=== PATIENT | female | born 1985 | race Caucasian/White ===

== ENCOUNTER 2016-07-22 18:06 | Emergency (ER) | payer OTHER ==
[2016-07-22 18:20] VITALS: BP 107/56; PULSE 67; TEMP 97.9; BMI 27.8
--- NOTE | 2016-07-22 18:57 | PDOC ---
History of Present Illness - General Chief Complaint: Pain Stated Complaint: INJURY Time Seen by Provider: 07/22/16 18:26 History Source: Patient Exam Limitations: No Limitations - History of Present Illness Initial Comments: 07/22/16 18:50 31 yr female with 2 weeks pain to right wrist . Pt states she lifts weight and may have twisted it . no direct trauma. Occurred: reports: other (2 weeks) Severity: reports: mild Past History - Past Medical History Allergies/Adverse Reactions: Allergies Allergy/AdvReac Type Severity Reaction Status Date / Time No Known Allergies Allergy Verified 07/22/16 18:10 Home Medications: Ambulatory Orders Amox-Tr/K Cl [Augmentin 875Mg Tablet] 1 tab PO BID #20 tablet 08/26/12 No Home Medications 0 dose .ROUTE UTDICT 08/26/12 Other medical history: denies - Psycho/Social/Smoking Cessation Hx Anxiety: No Suicidal Ideation: No Smoking Status: No Smoking History: Never smoked Number of Cigarettes Smoked Daily: 0 Information on smoking cessation initiated: No Hx Alcohol Use: No Drug/Substance Use Hx: No Substance Use Type: None Review of Systems - Review of Systems Able to Perform ROS?: Yes Is the patient limited Sami proficient: No Constitutional: No: Symptoms Reported HEENTM: No: Symptoms Reported Respiratory: No: Symptoms reported Cardiac (ROS): No: Symptoms Reported ABD/GI: No: Symptoms Reported : No: Symptoms Reported Musculoskeletal: Yes: Symptoms Reported, See HPI *Physical Exam - Vital Signs Last Vital Signs Temp Pulse Resp BP Pulse Ox 97.9 F 67 18 107/56 98 07/22/16 18:08 07/22/16 18:08 07/22/16 18:08 07/22/16 18:08 07/22/16 18:08 - Physical Exam General Appearance: Yes: Nourished, Appropriately Dressed HEENT: positive: EOMI, MICKEY Neck: negative: Tender Respiratory/Chest: positive: Lungs Clear, Normal Breath Sounds Cardiovascular: positive: Regular Rhythm, Regular Rate Musculoskeletal: positive: Normal Inspection Extremity: positive: Normal Capillary Refill, Normal Inspection, Normal Range of Motion, Swelling (distal radius right ) Integumentary: positive: Normal Color, Dry, Warm Neurologic: positive: Fully Oriented, Alert, Normal Mood/Affect, Normal Response , Motor Strength 5/5 Procedures - Splinting Pre-Made Type: velcro (right wrist) ED Treatment Course - RADIOLOGY Radiology Studies Ordered: Category Date Time Status WRIST W/HAND-RIGHT* [RAD] Stat Radiology 07/22/16 18:24 Ordered Medical Decision Making - Medical Decision Making 07/22/16 18:52 cc: right wrist and hand pain swelling for 2 weeks noticed after lifting weights will get xray motrin for pain 07/22/16 18:54 07/22/16 18:57 *DC/Admit/Observation/Transfer Diagnosis at time of Disposition: Sprain of wrist Qualifiers: Encounter type: initial encounter Laterality: right Qualified Code(s): S63.501A - Unspecified sprain of right wrist, initial encounter - Discharge Dispostion Disposition: HOME Condition at time of disposition: Good - Referrals Referrals: Lonnie Yarbrough MD [Primary Care Provider] - Mg Obrien MD [Staff Physician] - - Patient Instructions Additional Instructions: follow with the orthopedist at the number listed below use the splint at all times except to bathe no lifting weights or other strenuous activity that uses your wrist until cleared by the orthopedist and pain resolves take motrin for pain as needed (over the counter ibuprofen, motrin or advil)
== END 2016-07-22 19:57 | disposition home or self-care (01) ==
LOC: JER 18:06 → JERFT 18:06
PROC: 2W3CX1Z Immobilization of Right Lower Arm using Splint (ICD-10-PCS; principal; 2016-07-22)
DX: S63.501A Unspecified sprain of right wrist, initial encounter (principal); X50.0XXA Overexertion from strenuous movement or load, initial encounter; X50.3XXA Overexertion from repetitive movements, initial encounter; Y93.B3 Activity, free weights; Y92.89 Other specified places as the place of occurrence of the external cause; Y99.8 Other external cause status
CPT/HCPCS: 73110-TC-RT; 73130-TC-RT; 99281-25

== ENCOUNTER 2016-10-19 05:56 | Emergency (ER) | payer OTHER ==
--- NOTE | 2016-10-19 06:01 | PDOC ---
History of Present Illness - General Stated Complaint: EYE IRRITATION Time Seen by Provider: 10/19/16 06:00 Past History - Past Medical History Allergies/Adverse Reactions: Allergies Allergy/AdvReac Type Severity Reaction Status Date / Time No Known Allergies Allergy Verified 07/22/16 18:10 Home Medications: Ambulatory Orders Amox-Tr/K Cl [Augmentin 875Mg Tablet] 1 tab PO BID #20 tablet 08/26/12 No Home Medications 0 dose .ROUTE UTDICT 08/26/12 - Psycho/Social/Smoking Cessation Hx Anxiety: No Suicidal Ideation: No Smoking Status: No Smoking History: Never smoked Number of Cigarettes Smoked Daily: 0 Hx Alcohol Use: No Drug/Substance Use Hx: No Substance Use Type: None
[2016-10-19] MEDS ORDERED: TETRACAINE 0.5% HCL 0.6ML DROPPER.BOTTLE OU ONE (06:02)
[2016-10-19] MEDS ORDERED: FLUORESCEIN NA 1 EA STRIP ONE (06:03)
[2016-10-19] MEDS ORDERED: TETRACAINE 0.5% OPHTH SOLN 2 ML BOTTLE ONE (06:03)
[2016-10-19] MEDS ORDERED: diphenhydrAMINE HCL 25 MG CAPSULE (FP) PO ONE (06:10)
[2016-10-19] MEDS ORDERED: ERYTHROMYCIN 0.5% OPHTHALMIC OINTMENT 3.5 GM TUBE ONE (06:10)
[2016-10-19] MEDS ORDERED: ERYTHROMYCIN 0.5% OPHTHALMIC OINTMENT 3.5 GM TUBE OU ONE (06:11)
[2016-10-19] MEDS ORDERED: diphenhydrAMINE HCL 50 MG CAPSULE PO ONE (06:12)
[2016-10-19 06:18] VITALS: BP 136/74; PULSE 86; TEMP 97.6; BMI 25.7
--- NOTE | 2016-10-19 06:33 | PDOC ---
History of Present Illness - General History Source: Patient Exam Limitations: No Limitations - History of Present Illness Initial Comments: 10/19/16 06:35 The patient is a 31-year-old female with no significant past medical history, and presents to the emergency department with bilateral eye pain and irritation that started early this morning prior to arrival. She reports she woke up and felt an itch in her bilateral eyes, and scratched her eyes mildly. She washed the eyes with cold water with no significant relief. She states she felt her eyes become progressively tight, painful, and red. She also reports of itchiness down her face. She denies rubbing her eyes excessively. She denies any pets or allergies. She is UTD with her tetanus. The patient denies chest pain, shortness of breath, headache and dizziness. The patient denies fever, chills, nausea, vomit, diarrhea and constipation. The patient denies dysuria, frequency, urgency and hematuria. Allergies: NKDA Past Surgical History: None reported Social History: No toxic habits reported <Marisol Friedman - Last Filed: 10/19/16 06:33> <Brody Ashton - Last Filed: 10/19/16 07:00> - General Chief Complaint: Eye Problem Stated Complaint: EYE IRRITATION Time Seen by Provider: 10/19/16 06:00 Past History <Marisol Friedman - Last Filed: 10/19/16 06:33> - Immunization History Immunization Up to Date: Yes - Psycho/Social/Smoking Cessation Hx Anxiety: No Suicidal Ideation: No Smoking Status: No Smoking History: Never smoked Have you smoked in the past 12 months: No Number of Cigarettes Smoked Daily: 0 Information on smoking cessation initiated: No Hx Alcohol Use: No Drug/Substance Use Hx: No Substance Use Type: None <Brody Ashton - Last Filed: 10/19/16 07:00> - Past Medical History Allergies/Adverse Reactions: Allergies Allergy/AdvReac Type Severity Reaction Status Date / Time No Known Allergies Allergy Verified 10/19/16 06:05 Home Medications: Ambulatory Orders No Home Medications 0 dose .ROUTE UTDICT 08/26/12 Erythromycin 0.5% Eye Ointment [Erythromycin 0.5% Eye Ointment -] 1 applic OU DAILY #1 tube 10/19/16 Review of Systems - Review of Systems Able to Perform ROS?: Yes Comments:: 10/19/16 06:35 CONSTITUTIONAL: Absent: fever, chills, diaphoresis, generalized weakness, malaise, loss of appetite HEENT: Present: (+) eye pain, (+) eye redness, (+) eye itching Absent: rhinorrhea, nasal congestion, throat pain, throat swelling, difficulty swallowing, mouth swelling, ear pain, visual changes CARDIOVASCULAR: Absent: chest pain, syncope, palpitations, irregular heart rate, lightheadedness , peripheral edema RESPIRATORY: Absent: cough, shortness of breath, dyspnea with exertion, orthopnea, wheezing, stridor, hemoptysis GASTROINTESTINAL: Absent: abdominal pain, abdominal distension, nausea, vomiting, diarrhea, constipation, melena, hematochezia GENITOURINARY: Absent: dysuria, frequency, urgency, hesitancy, hematuria, flank pain, genital pain MUSCULOSKELETAL: Absent: myalgia, arthralgia, joint swelling SKIN: Present: (+) face itching Absent: pallor HEMATOLOGIC/IMMUNOLOGIC: Absent: easy bleeding, easy bruising, lymphadenopathy, frequent infections ENDOCRINE: Absent: unexplained weight gain, unexplained weight loss, heat intolerance, cold intolerance NEUROLOGIC: Absent: headache, focal weakness or paresthesias, dizziness, unsteady gait, seizure, mental status changes, bladder or bowel incontinence PSYCHIATRIC: Absent: anxiety, depression, suicidal or homicidal ideation, hallucinations. <Marisol Friedman - Last Filed: 10/19/16 06:33> *Physical Exam - Vital Signs Last Vital Signs Temp Pulse Resp BP Pulse Ox 97.6 F 86 22 136/74 99 10/19/16 06:05 10/19/16 06:05 10/19/16 06:05 10/19/16 06:05 10/19/16 06:05 - Physical Exam Comments: 10/19/16 06:35 GENERAL: Well developed, well nourished. Awake and alert. No acute distress. HEENT: (+) Injected bilateral conjunctivitis with positive chemosis. No hyphema. No corneal abrasion with fluorescein strip. Everted upper and lower bilateral eyelids with no foreign bodies or eyelashes. Normocephalic, atraumatic. PERRLA, EOMI. No conjunctival pallor. Sclera are non-icteric. Moist mucous membranes. Oropharynx is clear. NECK: Supple. Full ROM. No JVD. Carotid pulses 2+ and symmetric, without bruits. No thyromegaly. No lymphadenopathy. CARDIOVASCULAR: Regular rate and rhythm. No murmurs, rubs, or gallops. Distal pulses are 2+ and symmetric. PULMONARY: No evidence of respiratory distress. Lungs clear to auscultation bilaterally. No wheezing, rales or rhonchi. ABDOMINAL: Soft. Non-tender. Non-distended. No rebound or guarding. No organomegaly. Normoactive bowel sounds. MUSCULOSKELETAL Normal range of motion at all joints. No bony deformities or tenderness. No CVA tenderness. EXTREMITIES: No cyanosis. No clubbing. No edema. No calf tenderness. SKIN: (+) Urticaria rash on both cheeks down to the chin. Warm and dry. Normal capillary refill. No jaundice. NEUROLOGICAL: Alert, awake, appropriate. Cranial nerves 2-12 intact. No deficits to light touch and temperature in face, upper extremities and lower extremities. No motor deficits in the in face, upper extremities and lower extremities. Normoreflexic in the upper and lower extremities. Normal speech. Toes are down- going bilaterally. PSYCHIATRIC: Cooperative. Appropriate mood and affect. <Marisol Friedman - Last Filed: 10/19/16 06:33> - Vital Signs Last Vital Signs Temp Pulse Resp BP Pulse Ox 97.6 F 86 22 136/74 99 10/19/16 06:05 10/19/16 06:05 10/19/16 06:05 10/19/16 06:05 10/19/16 06:05 <Brody Ashton - Last Filed: 10/19/16 07:00> ED Treatment Course - Medications Given in the ED: ED Medications Discontinued Medications Generic Name Dose Route Start Last Admin Trade Name Tulioq PRN Reason Stop Dose Admin Diphenhydramine HCl 50 mg 10/19/16 06:12 10/19/16 06:15 Benadryl - PO 10/19/16 06:13 50 mg ONCE ONE Administration Erythromycin 1 applic 10/19/16 06:11 10/19/16 06:15 Erythromycin 0.5% Eye Ointment OU 10/19/16 06:12 1 applic ONCE ONE Administration Tetracaine HCl 1 drop 10/19/16 06:02 10/19/16 06:07 Tetravisc 0.5% Eye Drops - OU 10/19/16 06:03 1 drop ONCE ONE Administration <Marisol Friedman - Last Filed: 10/19/16 06:33> - Medications Given in the ED: ED Medications Discontinued Medications Generic Name Dose Route Start Last Admin Trade Name Jaun PRN Reason Stop Dose Admin Diphenhydramine HCl 50 mg 10/19/16 06:12 10/19/16 06:15 Benadryl - PO 10/19/16 06:13 50 mg ONCE ONE Administration Erythromycin 1 applic 10/19/16 06:11 10/19/16 06:15 Erythromycin 0.5% Eye Ointment OU 10/19/16 06:12 1 applic ONCE ONE Administration Tetracaine HCl 1 drop 10/19/16 06:02 10/19/16 06:07 Tetravisc 0.5% Eye Drops - OU 10/19/16 06:03 1 drop ONCE ONE Administration <Brody Ashton - Last Filed: 10/19/16 07:00> *DC/Admit/Observation/Transfer - Attestations Scribe Attestion: 10/19/16 06:36 Documentation prepared by Marisol Friedman, acting as biomedical specialist for Hilary Amador MD. <Marisol Friedman - Last Filed: 10/19/16 06:33> - Discharge Dispostion Admit: No <Brody Ashton - Last Filed: 10/19/16 07:00> Diagnosis at time of Disposition: Allergic conjunctivitis Qualifiers: Laterality: bilateral Qualified Code(s): H10.13 - Acute atopic conjunctivitis, bilateral - Discharge Dispostion Disposition: HOME Condition at time of disposition: Stable - Prescriptions Prescriptions: Erythromycin 0.5% Eye Ointment [Erythromycin 0.5% Eye Ointment -] 1 applic OU DAILY #1 tube - Patient Instructions Printed Discharge Instructions: Conjunctivitis Additional Instructions: Avoid rubbing your eyes Erythromycin opthalmic ointment per eye three times a day for 3 days Follow up with the Opthalmologist Return to the ER for severe/persistent/worsening symptoms Benadryl 50mg at night as needed/It can cause drowsiness Zyrtec daily as needed
== END 2016-10-19 07:00 | disposition home or self-care (01) ==
LOC: JER 05:56
DX: H10.13 Acute atopic conjunctivitis, bilateral (principal)
CPT/HCPCS: 99281-25

== ENCOUNTER 2017-08-22 19:12 | Emergency (ER) | payer OTHER ==
[2017-08-22 19:19] VITALS: BP 107/66; PULSE 79; TEMP 98.2; BMI 26.9
--- NOTE | 2017-08-22 19:24 | PDOC ---
Rapid Medical Evaluation Chief Complaint: Injury Time Seen by Provider: 08/22/17 19:20 Medical Evaluation: Allergies Allergy/AdvReac Type Severity Reaction Status Date / Time No Known Allergies Allergy Verified 08/22/17 19:14 Vital Signs Temp Pulse Resp BP Pulse Ox 98.2 F 79 18 107/66 100 08/22/17 19:14 08/22/17 19:14 08/22/17 19:14 08/22/17 19:14 08/22/17 19:14 08/22/17 19:22 I have performed a brief in-person evaluation of this patient. The patient presents with a chief complaint of: right ankle pain Pertinent physical exam findings: swelling and tenderness to lateral malleolus. I have ordered the following: upt, xray The patient will proceed to the ED for further evaluation. Discharge Disposition - Diagnosis Ankle pain - Referrals Referrals: Lonnie Yarbrough MD [Primary Care Provider] - - Patient Instructions - Post Discharge Activity
--- NOTE | 2017-08-22 20:13 | PDOC ---
History of Present Illness - General Chief Complaint: Injury Stated Complaint: FALL INJURY Time Seen by Provider: 08/22/17 19:20 History Source: Patient Exam Limitations: No Limitations - History of Present Illness Initial Comments: 08/22/17 20:08 Slipped on wet cement, inverting her right ankle, complaints of pain to lateral aspect and fifth metatarsal area Severity: reports: moderate Pain Location: reports: lower extremity Modifying Factors: improves with: None, cold therapy Past History - Travel Traveled outside of the country in the last 30 days: No Close contact w/someone who was outside of country & ill: No - Past Medical History Allergies/Adverse Reactions: Allergies Allergy/AdvReac Type Severity Reaction Status Date / Time No Known Allergies Allergy Verified 08/22/17 19:14 Home Medications: Ambulatory Orders No Home Medications 0 dose .ROUTE UTDICT 08/26/12 COPD: No - Immunization History Immunization Up to Date: Yes - Suicide/Smoking/Psychosocial Hx Smoking Status: No Smoking History: Never smoked Have you smoked in the past 12 months: No Number of Cigarettes Smoked Daily: 0 Hx Alcohol Use: No Drug/Substance Use Hx: No Substance Use Type: None Review of Systems - Review of Systems Able to Perform ROS?: Yes Is the patient limited Citizen [place] proficient: Yes Constitutional: Yes: Symptoms Reported, See HPI Respiratory: No: Symptoms reported Musculoskeletal: Yes: Symptoms Reported, See HPI Integumentary: Yes: Symptoms Reported, See HPI, Bruising All Other Systems: Reviewed and Negative *Physical Exam - Vital Signs Last Vital Signs Temp Pulse Resp BP Pulse Ox 98.2 F 79 18 107/66 100 08/22/17 19:14 08/22/17 19:14 08/22/17 19:14 08/22/17 19:14 08/22/17 19:14 - Physical Exam General Appearance: Yes: Nourished, Appropriately Dressed HEENT: positive: MICKEY, Normal ENT Inspection Musculoskeletal: positive: Normal Inspection, Decreased Range of Motion Extremity: positive: Normal Inspection. negative: Normal Range of Motion (with point tenderness to the lateral malleolus and fifth metatarsal. Tenderness is primarily in the middle aspect of the lateral right foot. Ambulatory but walks with significant limp. Negative squeeze test, negative malleolus pain) Integumentary: positive: Normal Color, Dry, Warm, Swelling, Ecchymosis, Bruising Neurologic: positive: manager mining II-XII NML intact, Fully Oriented, Alert, Normal Mood/ Affect, Normal Response, Motor Strength /5 Progress Note - Progress Note Progress Note: X-ray negative for fractures or dislocation , Ankle sprain, Zaki, Aircast and crutches provided *DC/Admit/Observation/Transfer Diagnosis at time of Disposition: Ankle pain Qualifiers: Chronicity: acute Laterality: right Qualified Code(s): M25.571 - Pain in right ankle and joints of right foot - Discharge Dispostion Disposition: HOME Condition at time of disposition: Stable Decision to Admit order: No - Referrals Referrals: Lonnie Yarbrough MD [Primary Care Provider] - Alfredo Boyer MD [Staff Physician] - - Patient Instructions Printed Discharge Instructions: DI for Ankle Sprain Additional Instructions: Rest, ice to area on and off for 15 minutes 4-6 times a day Avoid heavy lifting or exercise until pain and swelling is resolved or until further directed Keep area highly elevated to reduce swelling Use splints/Zaki wrap as directed Followup with orthopedist in one to 2 days if not improving, if significantly improved may wait one week for followup with orthopedist May use ibuprofen 2-200 mg tablets every 6 hours as needed for pain - Post Discharge Activity Forms/Work/School Notes: Back to Work
== END 2017-08-22 21:06 | disposition home or self-care (01) ==
LOC: JERFT 19:12
PROC: 2W3QX1Z Immobilization of Right Lower Leg using Splint (ICD-10-PCS; principal; 2017-08-22)
DX: S93.491A Sprain of other ligament of right ankle, initial encounter (principal); W01.0XXA Fall on same level from slipping, tripping and stumbling without subsequent striking against object, initial encounter; Y93.89 Activity, other specified; Y92.89 Other specified places as the place of occurrence of the external cause; Y99.8 Other external cause status
CPT/HCPCS: 73610-TC-RT-FY; 73630-TC-RT-FY; 84703; 99282-25

== ENCOUNTER 2018-12-14 16:33 | Emergency (ER) | payer OTHER ==
[2018-12-14 16:48] VITALS: BP 128/84; PULSE 61; TEMP 98; BMI 28.7
[2018-12-14] MEDS ORDERED: KETOROLAC TROMETHAMINE 60 MG/2 ML VIAL IM ONE (17:04)
[2018-12-14] MEDS ORDERED: KETOROLAC TROMETHAMINE 60 MG/2 ML VIAL ONE ×2 (17:07→17:30)
--- NOTE | 2018-12-14 17:10 | PDOC ---
History of Present Illness - General Chief Complaint: Injury Stated Complaint: FALL Time Seen by Provider: 12/14/18 16:48 History Source: Patient - History of Present Illness Occurred: reports: this afternoon Pain Location: reports: neck Past History - Past Medical History Allergies/Adverse Reactions: Allergies Allergy/AdvReac Type Severity Reaction Status Date / Time No Known Allergies Allergy Verified 12/14/18 16:48 Home Medications: Ambulatory Orders No Home Medications 0 dose .ROUTE UTDICT 08/26/12 Cyclobenzaprine HCl [Flexeril -] 10 mg PO TID #9 tablet 12/14/18 Cyclobenzaprine HCl [Flexeril 10 mg] 10 mg PO HS #9 tablet 12/14/18 Naproxen 500 mg PO BID #14 tablet 12/14/18 Naproxen 500 mg PO BID #14 tablet 12/14/18 COPD: No - Immunization History Immunization Up to Date: Yes - Psycho Social/Smoking Cessation Hx Smoking Status: No Smoking History: Never smoked Have you smoked in the past 12 months: No Number of Cigarettes Smoked Daily: 0 Information on smoking cessation initiated: No Hx Alcohol Use: No Drug/Substance Use Hx: No Substance Use Type: None Review of Systems - Review of Systems Musculoskeletal: Yes: Neck Pain Neurological: No: Headache, Numbness, Tingling, Weakness *Physical Exam - Vital Signs Last Vital Signs Temp Pulse Resp BP Pulse Ox 98 F 61 19 128/84 99 12/14/18 16:45 12/14/18 16:45 12/14/18 16:45 12/14/18 16:45 12/14/18 16:45 - Physical Exam Comments: 12/14/18 17:09 Patient sitting in a wheelchair with c-collar in place General Appearance: Yes: Appropriately Dressed. No: Apparent Distress HEENT: positive: Normal Voice Neck: positive: Tender (along cspine), Supple Respiratory/Chest: negative: Respiratory Distress Musculoskeletal: negative: Vertebral Tenderness Extremity: positive: Normal Inspection Integumentary: positive: Dry, Warm Neurologic: positive: Fully Oriented, Alert, Normal Mood/Affect, Motor Strength 5/5. negative: Sensory Deficit ED Treatment Course - RADIOLOGY Radiology Studies Ordered: Category Date Time Status CERVICAL SPINE CT W/O CONTR [CT] Stat CT Scan 12/14/18 17:04 Ordered Medical Decision Making - Medical Decision Making 12/14/18 17:05 33-year-old female with no significant history, here with severe neck pain s/p injury. States while at work today, her chair gave out causing her to fall backwards striking neck and back of head against the wall. No LOC, RICKETTS, dizziness, visual changes, n/v, sensory changes or UE weakness see exam Neck injury s/p injury Unable to clear cspine 2/2 midline ttp -pain control -CT cspine, declines upreg 12/14/18 18:29 CT read as negative for fracture or subluxation. C-collar removed. Dc with pain meds for most likely neck sprain. To follow-up with PMD as needed Discharge - Discharge Information Problems reviewed: Yes Clinical Impression/Diagnosis: Neck strain Qualifiers: Encounter type: initial encounter Qualified Code(s): S16.1XXA - Strain of muscle, fascia and tendon at neck level, initial encounter Condition: Improved Disposition: HOME - Additional Discharge Information Prescriptions: Cyclobenzaprine HCl [Flexeril 10 mg] 10 mg PO HS #9 tablet Naproxen 500 mg PO BID #14 tablet - Follow up/Referral Referrals: Lonnie Yarbrough MD [Primary Care Provider] - - Patient Discharge Instructions Patient Printed Discharge Instructions: DI for Neck Sprain Additional Instructions: Your CAT scan of your neck showed no fracture or dislocation Take medication for pain as prescribed If pain persist, please follow-up with your PMD - Post Discharge Activity Work/Back to School Note: Back to Work
== END 2018-12-14 18:39 | disposition home or self-care (01) ==
LOC: JERFT 16:33
PROC: 3E0233Z Introduction of Anti-inflammatory into Muscle, Percutaneous Approach (ICD-10-PCS; principal; 2018-12-14)
DX: S16.1XXA Strain of muscle, fascia and tendon at neck level, initial encounter (principal); W07.XXXA Fall from chair, initial encounter; W22.8XXA Striking against or struck by other objects, initial encounter; Y93.89 Activity, other specified; Y92.89 Other specified places as the place of occurrence of the external cause; Y99.0 Civilian activity done for income or pay
CPT/HCPCS: 72125-TC; 99281-25